=== PATIENT | female | born 1970 | race Caucasian/White ===

== ENCOUNTER 2021-04-14 16:36 | Emergency (ER) | payer OTHER ==
[2021-04-14] MEDS ORDERED: diphenhydrAMINE 50 MG/ML VIAL ONE (17:35)
[2021-04-14] MEDS ORDERED: Metoclopramide 10 MG/10 ML UDCUP ONE (17:35)
[2021-04-14] MEDS ORDERED: Acetaminophen 500 MG TAB ONE (17:35)
[2021-04-14] MEDS ORDERED: Metoclopramide HCl 10 MG/2 ML VIAL ONE (17:35)
[2021-04-14] MEDS ORDERED: Lorazepam 2 MG/ML VIAL ONE (18:38)
== END 2021-04-14 20:12 | disposition home or self-care (01) ==
LOC: ERS 16:36
DX: I10 Essential (primary) hypertension (principal); E03.9 Hypothyroidism, unspecified; Z79.899 Other long term (current) drug therapy
CPT/HCPCS: 70450; 96374; 96375; J1200; J2060; J2765

== ENCOUNTER 2021-06-11 17:00 | Outpatient (CLI) | payer OTHER | END 2021-06-11 17:01 | disposition home or self-care (01) | LOC: SLEEPLAB 17:00 | PROVIDERS: ATTEND Nurse Practitioner Family | DX: G47.33 Obstructive sleep apnea (adult) (pediatric) (principal); I10 Essential (primary) hypertension; K21.9 Gastro-esophageal reflux disease without esophagitis; G47.00 Insomnia, unspecified | CPT/HCPCS: 95806 ==

== ENCOUNTER 2021-06-30 07:23 | Outpatient (CLI) | payer OTHER | END 2021-06-30 07:24 | disposition home or self-care (01) | LOC: CT 07:23 | PROVIDERS: ATTEND Student in an Organized Health Care Education/Training Program | DX: H71.92 Unspecified cholesteatoma, left ear (principal); H73.893 Other specified disorders of tympanic membrane, bilateral; H83.8X1 Other specified diseases of right inner ear | CPT/HCPCS: 70480 ==

== ENCOUNTER 2021-07-24 07:34 | Outpatient (CLI) | payer BC ==
[2021-07-24 19:34] LABS: SARS-CoV-2 PCR by NAA Not Detected (NotDetected)
== END 2021-07-24 07:35 | disposition home or self-care (01) ==
LOC: LABBT 07:34
PROVIDERS: ATTEND Student in an Organized Health Care Education/Training Program
DX: Z01.818 Encounter for other preprocedural examination (principal); Z20.822 Contact with and (suspected) exposure to COVID-19
CPT/HCPCS: 85014; 93005; 93010; U0003; U0005

== ENCOUNTER 2021-07-28 07:57 | Day surgery (SDC) | payer BC ==
[2021-07-24 10:43] VITALS: BMI 58.1
[2021-07-28] MEDS ORDERED: Xylocaine 1% w/ Epi 1:100K 10 ML VIAL ONE (08:39)
[2021-07-28] MEDS ORDERED: Ciprofloxacin 0.2% Otic (0.25ML CONTAINER) ONE (08:39)
[2021-07-28] MEDS ORDERED: AFRIN NASAL MIST 15 ML BOT ONE ×2 (08:39→11:19)
[2021-07-28] MEDS ORDERED: Fentanyl 100 MCG/2 ML VIAL ONE (08:41)
[2021-07-28] MEDS ORDERED: Famotidine/PF 20 mg/2ml Vial ONE ×2 (08:41→09:08)
[2021-07-28] MEDS ORDERED: Scopolamine 1.5 mg/72 hour Patch ONE (09:08)
[2021-07-28] MEDS ORDERED: Dexamethasone 20 MG/5 ML VIAL ONE (09:20)
[2021-07-28] MEDS ORDERED: Lidocaine 1% PF 5 ML VIAL ONE (09:20)
[2021-07-28] MEDS ORDERED: PROPOFOL 200 MG/20 ML VIAL ONE (09:20)
[2021-07-28] MEDS ORDERED: PHENYLEPHRINE-NS 100 MCG/ML 10 ML SYRINGE ONE (09:20)
[2021-07-28] MEDS ORDERED: Rocuronium Bromide 10 MG/ML (10ML VIAL) ONE (09:20)
[2021-07-28] MEDS ORDERED: Glycopyrrolate 0.2 MG/ML 5 ML SYRINGE ONE (09:20)
[2021-07-28] MEDS ORDERED: Ondansetron PF 4 MG/2 ML Vial ONE (09:20)
[2021-07-28] MEDS ORDERED: Clindamycin/D5W 900 mg/50 ml Premix Bag ONE (09:30)
[2021-07-28] MEDS ORDERED: EPINEPHrine 1 MG/ML AMP ONE (09:51)
[2021-07-28] MEDS ORDERED: Bacitracin Zinc Ointment 30 gm TUBE ONE (11:53)
[2021-07-28] MEDS ORDERED: Promethazine HCl 25 MG/ML VIAL ONE (14:08)
[2021-07-28] MEDS ORDERED: Hydrocodone-Acetamin 15 ML UDCUP ONE (15:05)
== END 2021-07-28 15:53 | disposition home or self-care (01) ==
LOC: SDC 07:57
PROVIDERS: ATTEND Student in an Organized Health Care Education/Training Program
PROC: 097G8ZZ Dilation of Left Eustachian Tube, Via Natural or Artificial Opening Endoscopic (ICD-10-PCS; principal; 2021-07-28)
PROC: 097F8ZZ Dilation of Right Eustachian Tube, Via Natural or Artificial Opening Endoscopic (ICD-10-PCS; principal; 2021-07-28)
PROC: 099580Z Drainage of Right Middle Ear with Drainage Device, Via Natural or Artificial Opening Endoscopic (ICD-10-PCS; principal; 2021-07-28)
PROC: 099680Z Drainage of Left Middle Ear with Drainage Device, Via Natural or Artificial Opening Endoscopic (ICD-10-PCS; principal; 2021-07-28)
PROC: 09TL0ZZ Resection of Nasal Turbinate, Open Approach (ICD-10-PCS; principal; 2021-07-28)
PROC: 09J Ear, Nose, Sinus, Inspection (ICD-10-PCS; principal; 2021-07-28)
PROC: 09SM0ZZ Reposition Nasal Septum, Open Approach (ICD-10-PCS; principal; 2021-07-28)
DX: J34.2 Deviated nasal septum (principal); J34.3 Hypertrophy of nasal turbinates; H69.83 Other specified disorders of Eustachian tube, bilateral; H74.93 Unspecified disorder of middle ear and mastoid, bilateral; H90.2 Conductive hearing loss, unspecified; H73.893 Other specified disorders of tympanic membrane, bilateral; I10 Essential (primary) hypertension; E66.01 Morbid (severe) obesity due to excess calories; Z68.43 Body mass index [BMI] 50.0-59.9, adult; Z79.899 Other long term (current) drug therapy; Z88.0 Allergy status to penicillin; Z91.041 Radiographic dye allergy status; Z91.048 Other nonmedicinal substance allergy status
CPT/HCPCS: C1889; J0171; J1100; J2405; J2550; J2704; J3010; J3490; S0028

== ENCOUNTER 2021-08-28 14:04 | Outpatient (CLI) | payer BC | END 2021-08-28 14:05 | disposition home or self-care (01) | LOC: BICMAMMO 14:04 | PROVIDERS: ATTEND Family Medicine | DX: Z12.31 Encounter for screening mammogram for malignant neoplasm of breast (principal) | CPT/HCPCS: 77063; 77067 ==

== ENCOUNTER 2021-10-22 07:24 | Outpatient (CLI) | payer BC ==
[2021-10-22 20:43] LABS: SARS-CoV-2 PCR by NAA Not Detected (NotDetected)
== END 2021-10-22 07:25 | disposition home or self-care (01) ==
LOC: LABBT 07:24
PROVIDERS: ATTEND Internal Medicine Gastroenterology
DX: Z12.11 Encounter for screening for malignant neoplasm of colon (principal); Z20.822 Contact with and (suspected) exposure to COVID-19
CPT/HCPCS: U0003; U0005

== ENCOUNTER 2021-10-26 05:52 | Day surgery (SDC) | payer BC ==
[2021-10-21 14:45] VITALS: BMI 57.6
[2021-10-26] MEDS ORDERED: Lidocaine 1% PF 5 ML VIAL ONE (08:24)
[2021-10-26] MEDS ORDERED: PROPOFOL 200 MG/20 ML VIAL ONE (08:24)
== END 2021-10-26 09:45 | disposition home or self-care (01) ==
LOC: EEVIPCON 05:52 → SDC 05:52
PROVIDERS: ATTEND Internal Medicine Gastroenterology
PROC: 0DJD8ZZ Inspection of Lower Intestinal Tract, Via Natural or Artificial Opening Endoscopic (ICD-10-PCS; principal; 2021-10-26)
DX: Z12.11 Encounter for screening for malignant neoplasm of colon (principal); I10 Essential (primary) hypertension; G47.30 Sleep apnea, unspecified; Z79.82 Long term (current) use of aspirin; Z79.890 Hormone replacement therapy; Z79.899 Other long term (current) drug therapy; Z88.0 Allergy status to penicillin; Z91.041 Radiographic dye allergy status; Z91.048 Other nonmedicinal substance allergy status
CPT/HCPCS: J2704